=== PATIENT | female | born 1990 | race Asian ===

== ENCOUNTER → 2020-11-06 12:48 | Outpatient (ROUT) | payer OTHER, SELFPAY ==
[2020-11-06 14:31] LABS: Urine N gonorrhoeae NOT DETECTED
[2020-11-06 14:41] LABS: Urine Chlamydia NOT DETECTED
== END ==
PROVIDERS: PCP Physician Assistant; Visit Provider Obstetrics & Gynecology
DX: Z11.3 Encounter for screening for infections with a predominantly sexual mode of transmission (principal)
CPT/HCPCS: 87491; 87591